=== PATIENT | male | born 1930 | race Caucasian/White ===

== ENCOUNTER → 2016-11-13 | Outpatient (CLI) | payer OTHER ==
[~2016-11-13] MED LIST: IOPAMIDOL (ISOVUE 370) 100 ML BTL IV ONE
[2016-11-13 15:38] LABS: CREATININE 1.1 mg/dL (0.7-1.3); GLOMERULAR FILTRATION RATE > 60
--- NOTE | 2016-11-13 19:15 | CT ---
CT Angiography of the Abdomen Clinical Indications: Status post infrarenal aortic stent-graft placement for aneurysm June 24, 2016. Follow up CT scan to evaluate for endoleak. Technique: Thinly collimated multidetector helical data were obtained through the abdomen during the administration of 90 mL of Isovue-370 IV contrast during the arterial phase of contrast enhancement. Repeat 5-mm images are obtained in venous phase. Images were then transferred to an independent wo rkstation where multiplanar and three-dimensional reconstructions were performed by the radiologist. Appropriate images were stored on PACS. Dose reduction techniques were utilized. Comparison: June 30, 2016, April 01, 2016. Findings: CT Angiography: There is no evidence for an endoleak. The sac measures 5.5 x 5.3 cm, completely un changed compared to the CT scan that was performed right after the procedure. There is no graft migr ation. No limb kink. The renal arteries are widely patent. The renal cortical uptake is symmetric bilaterally. Lack of endoleak is confirmed on the delayed venous phase. CT Abdomen and Pelvis: No developing adenopathy or mass. The lung bases are clear. Solid and visce ral organs are normal. Impression: 1. No endoleak. 2. Stable sac size. 3. Stable stent-graft. 4. Otherwise normal abdomen scan. Plan: Scan two years after procedure, June 2018. E:vlad
== END ==
LOC: FIMAGING 14:42
PROVIDERS: ATTEND Radiology Diagnostic Radiology
DX: I71.4 Abdominal aortic aneurysm, without rupture (principal)
CPT/HCPCS: 74175; Q9967

== ENCOUNTER → 2018-07-22 | Outpatient (CLI) | payer OTHER | LOC: FIMAGING 13:46 | PROVIDERS: ATTEND Radiology Diagnostic Radiology | DX: Z09 Encounter for follow-up examination after completed treatment for conditions other than malignant neoplasm (principal); Z98.890 Other specified postprocedural states | CPT/HCPCS: 74174; Q9967; 82565-PO ==